=== PATIENT | male | born 1965 | race Hispanic/Latino ===

== ENCOUNTER 2016-09-16 15:11 | Emergency (ER) | payer MEDICAID, OTHER ==
[2016-09-16 15:11] VITALS: BMI 21.5
[2016-09-16] MEDS ORDERED: Iohexol 240 (50 ml) PO STA (15:58)
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
[2016-09-16] MEDS ORDERED: Iohexol 240 (50 ml) ONE (16:09)
[2016-09-16 16:18] LABS: BASO % 0.5 % (0.0-2.0); EOS # 0.1 K/uL (0.0-0.7); EOS % 1.7 % (0.0-4.0); HEMATOCRIT 32.3 % (35.0-51.0); LYMPH # 1.5 K/uL (1.0-4.3); LYMPH % 21.7 % (20.0-40.0); MEAN CORPUSCULAR HEMOGLOBIN 30.5 pg (27.0-31.0); MEAN CORPUSCULAR HGB CONC 32.4 g/dL (33.0-37.0); MEAN PLATELET VOLUME 8.4 fL (7.2-11.7); MONO # 0.3 K/uL (0.0-0.8); MONO % 4.2 % (0.0-10.0); RED CELL DISTRIBUTION WIDTH 19.8 % (11.5-14.5); WHITE BLOOD COUNT 7.1 K/uL (4.8-10.8)
[2016-09-16 16:20] LABS: MEAN CELL VOLUME 94.2 fL (80.0-94.0)
[2016-09-16 16:21] LABS: CHLORIDE 101 mmol/L (98-107); SODIUM 137 mmol/L (132-148)
[2016-09-16] MEDS ORDERED: Sodium Chloride 0.9% 1,000 ML IV ONE (16:21)
[2016-09-16 16:22] LABS: POTASSIUM 3.8 mmol/L (3.6-5.2)
[2016-09-16 16:24] LABS: ALB/GLOB RATIO 1.1 (1.0-2.1); ALKALINE PHOSPHATASE 65 U/L (38-126); ALT/SGPT 12 U/L (21-72); AST/SGOT 16 U/L (17-59); BILIRUBIN,TOTAL 0.2 mg/dL (0.2-1.3); BLOOD UREA NITROGEN 8 mg/dL (9-20); CARBON DIOXIDE 22 mmol/L (22-30); GFR AFRICAN-AMERICAN > 60; GLUCOSE,RANDOM 87 mg/dL (75-110); TOTAL PROTEIN 7.1 g/dL (6.3-8.3)
[2016-09-16] MEDS ORDERED: Sodium Chloride 0.9% 1,000 ML ONE (16:24)
[2016-09-16 16:25] LABS: CALCIUM 8.4 mg/dl (8.6-10.4)
[2016-09-16 16:56] VITALS: BP 119/76; PULSE 82; RESP 20; TEMP 97.2
[2016-09-16 17:00] VITALS: O2SAT 98
== END 2016-09-16 17:03 | disposition home or self-care (01) ==
LOC: C.ER 15:11
DX: R10.13 Epigastric pain (principal); F11.10 Opioid abuse, uncomplicated
CPT/HCPCS: 80053; 83690; 85025; 96361; 96374; 99284; J1885; J7040; Q9966

== ENCOUNTER 2016-11-01 20:57 | Inpatient (IN) | payer MEDICAID, OTHER ==
[2016-11-01 20:57] VITALS: BMI 21.5
--- NOTE | 2016-11-01 21:25 | C.PDOC ---
History Of Present Illness The patient, a 51 y/o male, presents to the ED requesting heroin and alcohol detox. Patient denies suicidal/homicidal ideation and has no physical complaints at this time. AMbulate to Ed for evaluation, AAO#3, appropriate, not in any apparent distress. Time Seen by Provider: 11/01/16 21:22 Chief Complaint (Nursing): Substance Abuse History Per: Patient History/Exam Limitations: intoxication Onset/Duration Of Symptoms: Hrs Current Symptoms Are (Timing): Still Present Suicide/Self Injury Attempted (Context): None Modifying Factor(s): Alcohol, Other (+heroin ) Associated Symptoms: denies: Suicidal Thoughts, Suicidal Plan Involuntary Hold By: None Recent travel outside of the [place]: No Additional History Per: Patient Past Medical History Reviewed: Historical Data, Nursing Documentation, Vital Signs Vital Signs: Last Vital Signs Temp 98.4 F 11/01/16 21:15 Pulse 85 11/01/16 21:15 Resp 14 11/01/16 21:15 BP 100/67 11/01/16 21:15 Pulse Ox 98 11/01/16 22:43 - Medical History PMH: Anxiety, Back Problems (herniated discs), Obstructive Bowel Denies: Chronic Kidney Disease Surgical History: No Surg Hx - [facility] Procedures APPLICATION OF SPLINT (01/22/14) DRUG DETOXIFICATION (07/28/14) INJECT/INFUSE NEC (06/02/14) PSYCHIA INTERV/EVAL NEC (12/20/14) Family History: States: Unknown Family Hx - Social History Hx Tobacco Use: Yes Hx Alcohol Use: Yes Hx Substance Use: Yes (Heroin last intake 2pm today) - Immunization History Hx Tetanus Toxoid Vaccination: No Hx Influenza Vaccination: No Hx Pneumococcal Vaccination: No Review Of Systems Except As Marked, All Systems Reviewed And Found Negative. Psych: Positive for: Other (heroin and alcohol detox ). Negative for: Suicidal ideation Physical Exam - Physical Exam Appears: No Acute Distress Skin: Normal Color, Warm, Dry Head: Atraumatic, Normacephalic Eye(s): bilateral: Normal Inspection Oral Mucosa: Moist Neck: Supple Chest: Symmetrical, No Deformity, No Tenderness Cardiovascular: Rhythm Regular, No Murmur Respiratory: Normal Breath Sounds, No Rales, No Rhonchi, No Wheezing Back: Normal Inspection, No Vertebral Tenderness, No Paraspinal Tenderness Extremity: Normal ROM, Capillary Refill (less than 2 seconds ) Neurological/Psych: Normal Speech, Normal Cognition Gait: Steady ED Course And Treatment - Laboratory Results Result Diagrams: 11/01/16 22:12 11/01/16 22:12 Lab Interpretation: Normal ECG: Interpreted By Me ECG Interpretation: Normal Interpretation Of ECG: SR@69/min, NAD, T wave or ST-T changes. O2 Sat by Pulse Oximetry: 98 (on RA) Pulse Ox Interpretation: Normal - Radiology CXR: Interpreted by Me, Viewed By Me CXR Interpretation: Yes: No Acute Disease Progress Note: Labs, CXR, and EKG were ordered and reviewed. PATIENT IS MEDICALLY CLEARED FOR FURTHER PES EVALUATION,TREATMENT. Pt was seen and evaluated by PES and admission to detx s/o with Dx: opiod dependance and alcohol abuse arranged. Disposition - Disposition Disposition: HOSPITALIZED Disposition Time: 22:43 Condition: STABLE - Clinical Impression Clinical Impression: Opioid dependence, Alcohol use - PA / EPIC WILLOW ANALYST / Resident Statement MD/DO has reviewed & agrees with the documentation as recorded. - Scribe Statement The provider has reviewed the documentation as recorded by the Scribe (Sara Segundo) All medical record entries made by the Scribe were at my direction and personally dictated by me. I have reviewed the chart and agree that the record accurately reflects my personal performance of the history, physical exam, medical decision making, and the department course for this patient. I have also personally directed, reviewed, and agree with the discharge instructions and disposition.
[2016-11-01 21:49] LABS: RBC URINE 2 /hpf (0-3); URINE BILIRUBIN NEGATIVE (NEGATIVE); URINE BLOOD 1+ (NEGATIVE); URINE COLOR Yellow (YELLOW); URINE GLUCOSE (UA) NORMAL (Normal); URINE KETONE NEGATIVE (NEGATIVE); URINE LEUKOCYTE ESTERASE NEG Leu/uL (Negative); URINE PROTEIN 1+ mg/dL (NEGATIVE); URINE UROBILINOGEN NORMAL mg/dL (0.2-1.0); WBC URINE < 1 /hpf (0-5)
[2016-11-01 22:14] LABS: BASO # 0.1 K/uL (0.0-0.2); BASO % 0.7 % (0.0-2.0); EOS # 0.1 K/uL (0.0-0.7); EOS % 1.4 % (0.0-4.0); HEMATOCRIT 36.6 % (35.0-51.0); LYMPH # 1.9 K/uL (1.0-4.3); LYMPH % 21.3 % (20.0-40.0); MEAN CELL VOLUME 96.7 fL (80.0-94.0); MEAN CORPUSCULAR HEMOGLOBIN 31.9 pg (27.0-31.0); MEAN PLATELET VOLUME 8.5 fL (7.2-11.7); MONO # 0.5 K/uL (0.0-0.8); MONO % 5.5 % (0.0-10.0); RED CELL DISTRIBUTION WIDTH 14.4 % (11.5-14.5); WHITE BLOOD COUNT 8.8 K/uL (4.8-10.8)
[2016-11-01 22:23] LABS: CHLORIDE 100 mmol/L (98-107); POTASSIUM 4.4 mmol/L (3.6-5.2); SODIUM 137 mmol/L (132-148)
[2016-11-01 22:25] LABS: BILIRUBIN,TOTAL 0.6 mg/dL (0.2-1.3); CARBON DIOXIDE 25 mmol/L (22-30); GFR AFRICAN-AMERICAN > 60
[2016-11-01 22:26] LABS: ALB/GLOB RATIO 1.2 (1.0-2.1); ALKALINE PHOSPHATASE 63 U/L (38-126); ALT/SGPT 11 U/L (21-72); AST/SGOT 23 U/L (17-59); BLOOD UREA NITROGEN 13 mg/dL (9-20); CALCIUM 9.2 mg/dl (8.6-10.4); GLUCOSE,RANDOM 94 mg/dL (75-110); TOTAL PROTEIN 8.2 g/dL (6.3-8.3)
[2016-11-01 22:27] LABS: ALCOHOL SERUM < 10 mg/dl (0-10)
[2016-11-02 05:36] VITALS: TEMP 98
[2016-11-02] MEDS ORDERED: Buprenorphine Hydrochloride 2 mg SL ONE ×2 (06:31→07:30)
[2016-11-02 07:39] VITALS: BP 125/80; PULSE 86; RESP 20; O2SAT 97
[2016-11-02] MEDS ORDERED: Multiple Vitamins Tab PO SCH (10:00)
--- NOTE | 2016-11-02 10:45 | RAD ---
HISTORY: Detox/Psy COMPARISON: No prior. TECHNIQUE: Chest PA and lateral FINDINGS: LUNGS: No active pulmonary disease. PLEURA: No significant pleural effusion identified. No pneumothorax apparent. CARDIOVASCULAR: Normal. OSSEOUS STRUCTURES: No significant abnormalities. VISUALIZED UPPER ABDOMEN: Normal. OTHER FINDINGS: None. IMPRESSION: No active disease. Concordant results with the preliminary interpretation rendered by the emergency department physician procedure.
--- NOTE | 2016-11-02 14:41 | PCM.PSYCH ---
Initial Psychiatric Evaluation - Initial Psychiatric Evaluation Type of Admission: Voluntary History of Present Illness and Precipitating Events: Patient left the unit AGAINST MEDICAL ADVICE, even before evaluation by psychiatrist. Patient refused to stay for evaluation. Also patient refused to talk. Patient was admitted for opiate and alcohol use disorder and withdrawal. Patient got one dose of methadone 20 mg in the morning. After getting dose of methadone patient started asking for discharge. At the time of discharge, patient was awake alert oriented 3. Patient was educated about completion of detox, patient refused. Patient was also educated that in case of any adverse event including decompensation, relapse or even of the patient, patient will be responsible for his actions. Patient understood and agreed, still refused to provide any information and refused to stay and left AGAINST MEDICAL ADVICE. Current Medications: Active Medications Generic Name Dose Route Start Last Admin Trade Name Freq PRN Reason Stop Dose Admin Chlordiazepoxide 25 mg 11/02/16 12:00 Librium PO 11/06/16 11:59 Q6 [facility]AD[facility] Taper Chlordiazepoxide 25 mg 11/02/16 10:00 Librium PO Q4H PRN Alcohol Withdrawal Clonidine HCl 0.1 mg 11/02/16 03:27 11/02/16 05:28 Catapres PO 0.1 mg Q8 PRN Administration COWS Score More or Equal to 5 Dicyclomine HCl 10 mg 11/02/16 03:27 11/02/16 03:57 Bentyl PO 10 mg Q6 PRN Administration Muscle spasm Folic Acid 1 mg 11/02/16 10:00 Folic Acid PO DAILY [facility] [place] Hydroxyzine HCl 25 mg 11/02/16 03:27 11/02/16 05:28 Atarax PO 25 mg Q6 PRN Administration Anxiety Ibuprofen 600 mg 11/02/16 03:49 Motrin Tab PO Q6 PRN Pain, moderate (4-7) Loperamide HCl 2 mg 11/02/16 03:27 Imodium PO Q8 PRN Diarrhea Multivitamins 1 tab 11/02/16 10:00 Hexavitamin PO DAILY [facility] Ondansetron HCl 4 mg 11/02/16 03:37 11/02/16 03:58 Zofran Inj IM 4 mg Q6 PRN Administration Nausea/Vomiting Ondansetron HCl 4 mg 11/02/16 03:44 Zofran Tab PO Q8H PRN Nausea/Vomiting Pneumococcal Polyvalent Vaccine 0.5 ml 11/05/16 10:00 Pneumovax 23 Vaccine IM 11/05/16 10:01 .ONCE ONE Thiamine HCl 100 mg 11/02/16 10:00 Vitamin B1 Tab PO DAILY [facility] Trazodone HCl 50 mg 11/02/16 03:27 Desyrel PO HS PRN Insomnia Past Psychiatric History - Past Psychiatric History Pertinent Medical Hx (Current Medical&Sleep Prob, Allergies): Allergies Allergy/AdvReac Type Severity Reaction Status Date / Time No Known Allergies Allergy Verified 11/01/16 21:19 No Known Home Med 09/02/16
--- NOTE | 2016-11-02 14:44 | PCM.PYCHDC ---
Mental Status Examination - Mental Status Examination Orientation: Person, Place, Situation, Time Mood: Neutral Affect: Other (Appropriate) Speech: Appropriate Attention: WNL Concentration: WNL Association: WNL Fund of Knowledge: WNL Formal Thought Process: No Impairment Suicidal Ideation: No Current Homicidal Ideation?: No Discharge Summary - Discharge Note Reason for Hospitalization: Opiate use and alcohol use Opiate and alcohol withdrawal Laboratory Data: Reviewed Consultations:: List each consultation separately and include: 1. Reason for request. 2. Findings. 3. Follow-up Summary of Hospital Course include:: 1. Description of specific treatment plan utilized for patients during their course of treatmen. 2. Summarize the time- course for resolution of acute symptoms and/or regressed behaviors. 3. Describe issues identified and worked on during hospitalization. 4. Describe medication utilized. 5. Describe medical problems identified and treated. 6. Reassessment of suicide risk Summary of Hospital Course: Patient left the unit AGAINST MEDICAL ADVICE, even before evaluation by psychiatrist. Patient refused to stay for evaluation. Also patient refused to talk. Patient was admitted for opiate and alcohol use disorder and withdrawal. Patient got one dose of methadone 20 mg in the morning. After getting dose of methadone patient started asking for discharge. At the time of discharge, patient was awake alert oriented 3. Patient was educated about completion of detox, patient refused. Patient was also educated that in case of any adverse event including decompensation, relapse or even of the patient, patient will be responsible for his actions. Patient understood and agreed, still refused to provide any information and refused to stay and left AGAINST MEDICAL ADVICE. - Final Diagnosis (DSM 5) Condition upon Discharge: GOOD Disposition: AGAINST MEDICAL ADVICE
--- NOTE | 2016-11-04 07:54 | CARD ---
APPROVED REPORT EKG Measurement Heart [id number] <Conclusion> Normal sinus rhythm Normal ECG
[2016-11-05] MEDS ORDERED: Pneumococcal 23-Valent Vaccine IM ONE (10:00)
== END 2016-11-02 08:55 | disposition left against medical advice (07) | DRG 743 ==
LOC: C.ER 20:57 → C.7D 11-02 00:02
DX: F10.239 Alcohol dependence with withdrawal, unspecified (principal); F11.23 Opioid dependence with withdrawal

== ENCOUNTER 2016-11-29 19:40 | Emergency (ER) | payer MEDICAID, OTHER ==
[2016-11-29 19:41] VITALS: BMI 21.5
[2016-11-29 19:48] VITALS: O2SAT 100
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
[2016-11-29 20:24] VITALS: BP 110/70; PULSE 80; RESP 14; TEMP 97.5
== END 2016-11-29 20:24 | disposition home or self-care (01) ==
LOC: C.ER 19:40
DX: F11.10 Opioid abuse, uncomplicated (principal); Z59.0 Homelessness

== ENCOUNTER 2017-07-26 13:04 | Observation (INO) | payer MEDICAID, OTHER ==
[2017-07-26 13:05] VITALS: BMI 21.5
--- NOTE | 2017-07-26 16:15 | C.PDOC ---
History Of Present Illness 51 y/o male presents to ED requesting detox from heroin last use this morning and with complaints of skin popping. Patient reports rash to right hand and denies trauma, injury, change in sensation, withdrawal signs or any other complaints at this time. Time Seen by Provider: 07/26/17 14:59 Chief Complaint (Nursing): Substance Abuse History Per: Patient History/Exam Limitations: no limitations Onset/Duration Of Symptoms: Days Current Symptoms Are (Timing): Still Present Suicide/Self Injury Attempted (Context): None Past Medical History Reviewed: Historical Data, Nursing Documentation, Vital Signs Vital Signs: Last Vital Signs Temp 99 F 07/26/17 21:54 Pulse 74 07/26/17 21:54 Resp 20 07/26/17 21:54 BP 99/62 L 07/26/17 21:54 Pulse Ox 98 07/26/17 23:06 - Medical History PMH: Anxiety, Back Problems (herniated discs), Obstructive Bowel Surgical History: No Surg Hx - [facility] Procedures APPLICATION OF SPLINT (01/22/14) DRUG DETOXIFICATION (07/28/14) INJECT/INFUSE NEC (06/02/14) PSYCHIA INTERV/EVAL NEC (12/20/14) Family History: States: No Known Family Hx - Social History Hx Tobacco Use: Yes Hx Alcohol Use: Yes Hx Substance Use: Yes (Heroin last intake 07/26/17) - Immunization History Hx Tetanus Toxoid Vaccination: No Hx Influenza Vaccination: No Hx Pneumococcal Vaccination: No Review Of Systems Constitutional: Negative for: Fever, Chills Cardiovascular: Negative for: Chest Pain Gastrointestinal: Negative for: Nausea, Vomiting Skin: Positive for: Rash Neurological: Negative for: Weakness, Numbness Psych: Negative for: Suicidal ideation, Withdrawal Physical Exam - Physical Exam Appears: Non-toxic, No Acute Distress Skin: Warm, Dry, Other (swelling, warmth and erythema to dorsum right hand over 2nd mtp joint with from all fingers. no flucutuance noted. ) Head: Atraumatic, Normacephalic Oral Mucosa: Moist Throat: Normal, No Erythema, No Exudate Neck: Supple Cardiovascular: Rhythm Regular Respiratory: Normal Breath Sounds, No Rales, No Rhonchi, No Wheezing Gastrointestinal/Abdominal: Soft, No Tenderness, No Guarding, No Rebound Extremity: No Deformity, Swelling (to 2nd MTP and dorsum of right hand) Pulses: Left Radial: Normal, Right Radial: Normal Neurological/Psych: Oriented x3, Normal Motor, Normal Sensation ED Course And Treatment - Laboratory Results Result Diagrams: 07/26/17 16:35 07/26/17 16:35 O2 Sat by Pulse Oximetry: 98 (RA) Pulse Ox Interpretation: Normal Disposition Discussed With : Sheron Segundo Doctor Will See Patient In The: Hospital - Disposition Disposition: HOSPITALIZED Disposition Time: 17:20 Condition: GOOD - Clinical Impression Clinical Impression: Cellulitis of right hand - PA / LENS INSPECTOR / Resident Statement MD/DO has reviewed & agrees with the documentation as recorded. - Scribe Statement The provider has reviewed the documentation as recorded by the Christo Reardon All medical record entries made by the Christo were at my direction and personally dictated by me. I have reviewed the chart and agree that the record accurately reflects my personal performance of the history, physical exam, medical decision making, and the department course for this patient. I have also personally directed, reviewed, and agree with the discharge instructions and disposition.
[2017-07-26 16:21] LABS: URINE BILIRUBIN NEGATIVE (NEGATIVE); URINE BLOOD 1+ (NEGATIVE); URINE CLARITY Hazy (Clear); URINE COLOR Yellow (YELLOW); URINE GLUCOSE (UA) NORMAL (Normal); URINE LEUKOCYTE ESTERASE NEG Leu/uL (Negative); URINE NITRATE NEGATIVE (NEGATIVE); URINE PROTEIN 2+ mg/dL (NEGATIVE)
--- NOTE | 2017-07-26 16:28 | RAD ---
PROCEDURE: Right Hand Radiographs. HISTORY: swelling warm over 2nd mtp, COMPARISON: None available. FINDINGS: BONES: Comminuted fracture of the base of the 5th metacarpal. The remainder the visualized osseous structures appear intact. JOINTS: No dislocation. SOFT TISSUES: Soft tissue swelling. No evidence of radiopaque foreign body. OTHER FINDINGS: None. IMPRESSION: Comminuted fracture, base of 5th metacarpal. Associated soft tissue swelling.
[2017-07-26 16:43] LABS: BASO % 0.3 % (0.0-2.0); EOS # 0.2 K/uL (0.0-0.7); EOS % 1.6 % (0.0-4.0); HEMOGLOBIN 11.8 g/dL (12.0-18.0); LYMPH # 1.3 K/uL (1.0-4.3); LYMPH % 11.9 % (20.0-40.0); MEAN CELL VOLUME 93.7 fL (80.0-94.0); MEAN CORPUSCULAR HEMOGLOBIN 31.5 pg (27.0-31.0); MEAN CORPUSCULAR HGB CONC 33.6 g/dL (33.0-37.0); MONO # 0.5 K/uL (0.0-0.8); MONO % 4.7 % (0.0-10.0); NEUT # 8.9 K/uL (1.8-7.0); NEUT % 81.5 % (50.0-75.0); RBC 3.75 Mil/uL (4.40-5.90)
[2017-07-26 16:48] LABS: BARBITURATES, UR NEGATIVE (NEGATIVE); BENZODIAZEPINES, UR NEGATIVE (NEGATIVE); PHENCYCLIDINE, UR NEGATIVE (NEGATIVE)
[2017-07-26 16:49] LABS: OPIATES, UR POSITIVE (NEGATIVE)
[2017-07-26 16:51] LABS: ALB/GLOB RATIO 1.1 (1.0-2.1); ALBUMIN 4.3 g/dL (3.5-5.0); ALT/SGPT 29 U/L (21-72); AST/SGOT 27 U/L (17-59); BLOOD UREA NITROGEN 11 mg/dL (9-20); CALCIUM 9.3 mg/dl (8.6-10.4); GFR AFRICAN-AMERICAN > 60; GFR NON-AFRICAN AMERICAN > 60
[2017-07-26] MEDS ORDERED: Piperacill/Tazo 3.375gm in Dex 3.375 GM/50 ML BAG IVPB STA (17:07)
[2017-07-26] MEDS ORDERED: Piperacillin/Tazobact 3.375 gm 100 ML IVPB ONE (18:14)
[2017-07-26] MEDS ORDERED: Vancomycin 1 gm/NS 200 ml 1 GM/200 ML BAG IVPB STA (18:18)
--- NOTE | 2017-07-26 19:51 | CP.PCM.HP ---
Past Patient History - Infectious Disease Hx of Infectious Diseases: None - Past Medical History & Family History Past Medical History?: Yes - Past Social History Smoking Status: Heavy Smoker > 10 Cigarettes Daily - CARDIAC Hx Cardiac Disorders: No Hx Hypertension: No - PULMONARY Hx Tuberculosis: No - NEUROLOGICAL HX Cerebrovascular Accident: No Hx Seizures: No - HEENT Hx HEENT Problems: No - RENAL Hx Chronic Kidney Disease: No - ENDOCRINE/METABOLIC Hx Endocrine Disorders: No - HEMATOLOGICAL/ONCOLOGICAL Hx Cancer: No Hx Human Immunodeficiency Virus (HIV): No - INTEGUMENTARY Hx Dermatological Problems: No - MUSCULOSKELETAL/RHEUMATOLOGICAL Hx Musculoskeletal Disorders: Yes Hx Falls: No Hx Herniated Disk: Yes - GASTROINTESTINAL Hx Gastrointestinal Disorders: No - GENITOURINARY/GYNECOLOGICAL Hx Sexually Transmitted Disorders: No - PSYCHIATRIC Hx Anxiety: Yes Hx Substance Use: Yes (Heroin last intake 07/26/17) - SURGICAL HISTORY Hx Surgeries: Yes Other/Comment: Abominal surgery in September 2016 due to intestional obstruction as reported by pt. - ANESTHESIA Hx Anesthesia: Yes Hx Anesthesia Reactions: No Meds Allergies/Adverse Reactions: Allergies Allergy/AdvReac Type Severity Reaction Status Date / Time aspirin AdvReac VOMITING Verified 07/26/17 13:18 Results - Vital Signs Recent Vital Signs: Last Vital Signs Temp 98.5 F 07/26/17 16:56 Pulse 77 07/26/17 16:56 Resp 16 07/26/17 16:56 BP 101/62 07/26/17 16:56 Pulse Ox 98 07/26/17 17:20 - Labs Result Diagrams: 07/26/17 16:35 07/26/17 16:35 Labs: Laboratory Results - last 24 hr 07/26/17 07/26/17 07/26/17 16:15 16:15 16:35 WBC 11.0 H RBC 3.75 L Hgb 11.8 L Hct 35.2 MCV 93.7 D MCH 31.5 H MCHC 33.6 RDW 14.0 Plt Count 254 MPV 9.0 Neut % (Auto) 81.5 H Lymph % (Auto) 11.9 L [place] % (Auto) 4.7 Eos % (Auto) 1.6 Baso % (Auto) 0.3 Neut # (Auto) 8.9 H Lymph # (Auto) 1.3 [place] # (Auto) 0.5 Eos # (Auto) 0.2 Baso # (Auto) 0.0 Sodium Potassium Chloride Carbon Dioxide Anion Gap BUN Creatinine Est GFR ( Amer) Est GFR (Non-Af Amer) Random Glucose Calcium Total Bilirubin AST ALT Alkaline Phosphatase Total Protein Albumin Globulin Albumin/Globulin Ratio Urine Color Yellow Urine Clarity Hazy Urine pH 5.0 Ur Specific [place] 1.026 Urine Protein 2+ H Urine Glucose (UA) Normal Urine Ketones Trace Urine Blood 1+ H Urine Nitrate Negative Urine Bilirubin Negative Urine Urobilinogen 2.0 Ur Leukocyte Esterase Neg Urine WBC (Auto) 1 Urine RBC (Auto) 5 H Urine Opiates Screen Positive H Urine Methadone Screen Negative Ur Barbiturates Screen Negative Ur Phencyclidine Scrn Negative Ur Amphetamines Screen Negative U Benzodiazepines Scrn Negative U Oth Cocaine Metabols Negative U Cannabinoids Screen Negative Alcohol, Quantitative 07/26/17 16:35 WBC RBC Hgb Hct MCV MCH MCHC RDW Plt Count MPV Neut % (Auto) Lymph % (Auto) [place] % (Auto) Eos % (Auto) Baso % (Auto) Neut # (Auto) Lymph # (Auto) [place] # (Auto) Eos # (Auto) Baso # (Auto) Sodium 137 Potassium 4.0 Chloride 99 Carbon Dioxide 25 Anion Gap 17 BUN 11 Creatinine 0.9 Est GFR ( Amer) > 60 Est GFR (Non-Af Amer) > 60 Random Glucose 94 Calcium 9.3 Total Bilirubin 0.5 AST 27 ALT 29 Alkaline Phosphatase 73 Total Protein 8.2 Albumin 4.3 Globulin 3.9 Albumin/Globulin Ratio 1.1 Urine Color Urine Clarity Urine pH Ur Specific [place] Urine Protein Urine Glucose (UA) Urine Ketones Urine Blood Urine Nitrate Urine Bilirubin Urine Urobilinogen Ur Leukocyte Esterase Urine WBC (Auto) Urine RBC (Auto) Urine Opiates Screen Urine Methadone Screen Ur Barbiturates Screen Ur Phencyclidine Scrn Ur Amphetamines Screen U Benzodiazepines Scrn U Oth Cocaine Metabols U Cannabinoids Screen Alcohol, Quantitative < 10
[2017-07-26] MEDS: Piperacill/Tazo 2.25gm in Dex 2.25 GM/50 ML BAG IVPB SCH (20:20)
[2017-07-26 21:54] VITALS: PULSE 74; RESP 20; O2SAT 98
[2017-07-27] MEDS: Piperacill/Tazo 2.25gm in Dex 2.25 GM/50 ML BAG IVPB SCH ×2 (02:00→08:00)
[2017-07-27 02:32] VITALS: BP 112/61; TEMP 98.2
[2017-07-27] MEDS ORDERED: Pneumococcal 23-Valent Vaccine IM ONE (10:00)
[2017-07-27] MEDS ORDERED: Influenza Vaccine 60 mcg/0.5 mL SYR (4YR UP) IM ONE (10:00)
[2017-07-27] MEDS ORDERED: Enoxaparin 40 mg Syringe SC SCH (10:00)
[2017-07-27] MEDS ORDERED: Pantoprazole 40 mg EC Tab PO SCH (10:00)
[2017-07-27] MEDS ORDERED: Vancomycin 1 gm/NS 200 ml 1 GM/200 ML BAG IVPB SCH (18:30)
== END 2017-07-27 08:30 | disposition left against medical advice (07) ==
LOC: C.ER 13:04 → C.9E 17:18 → C.3T 20:48
PROVIDERS: ADMIT Internal Medicine Nephrology; ATTEND Internal Medicine Nephrology
DX: L03.113 Cellulitis of right upper limb (principal); F11.90 Opioid use, unspecified, uncomplicated; F17.210 Nicotine dependence, cigarettes, uncomplicated
CPT/HCPCS: 73130; 80053; 80320; 80324; 80345; 80346; 80349; 80353; 80358; 80361; 81001; 83992; 85025; 87040; 96365; 96366; 96367; 99285; G0378; J2543; J3370